=== PATIENT | male | born 1945 | race Caucasian/White ===

== ENCOUNTER 2017-05-24 11:48 | Outpatient (CLI) | payer MEDICARE, OTHER ==
[2017-05-24 13:34] LABS: Hematocrit 48.3 % (42.0-52.0); Mean Platelet Volume 6.8 fL (7.4-10.4); Red Blood Cell (RBC) Count 4.95 mill/uL (4.70-6.10); White Blood Cell (WBC) Count 6.6 thou/uL (4.8-10.8)
[2017-05-24 13:36] LABS: PTT 24.4 SEC (22.9-36.1)
[2017-05-24 13:40] LABS: Prothrombin Time 12.6 SEC (12.0-14.7)
[2017-05-24 13:44] LABS: Anion Gap 12 mmol/L (10-20); BUN (Urea Nitrogen) 28 mg/dL (8.4-25.7); Calc. Creatinine Clearance 0 mL/min (70-130); Calcium 9.8 mg/dL (7.8-10.44); Carbon Dioxide 26 mmol/L (23-31); Chloride 104 mmol/L (98-107); Estimated GFR-MDRD 71
== END 2017-05-24 11:49 | disposition home or self-care (01) ==
LOC: LABBT 11:48
PROVIDERS: ATTEND Podiatrist
DX: Z01.812 Encounter for preprocedural laboratory examination (principal); Z51.81 Encounter for therapeutic drug level monitoring; M21.611 Bunion of right foot; M1A.9XX1 Chronic gout, unspecified, with tophus (tophi); Z79.01 Long term (current) use of anticoagulants
CPT/HCPCS: 80048; 85027; 85610; 85730; 93005; 93010

== ENCOUNTER 2017-06-01 11:11 | Day surgery (SDC) | payer MEDICARE, OTHER ==
[2017-05-24 12:40] VITALS: BMI 22.4
[2017-06-01] MEDS ORDERED: CEFAZOLIN/Water 2 GM/20 ML SYRINGE ONE (12:35)
[2017-06-01] MEDS ORDERED: Fentanyl 100 MCG/2 ML VIAL ONE (13:10)
[2017-06-01] MEDS ORDERED: Lidocaine 2% w/Epinephrine 1:200K 20 ML VIAL ONE (13:42)
[2017-06-01] MEDS ORDERED: Lidocaine 2% PF 5 ML VIAL ONE (13:42)
[2017-06-01] MEDS ORDERED: Lidocaine 1% (PF) 30 ML VIAL ONE (13:42)
[2017-06-01] MEDS ORDERED: Bupivacaine PF 0.5% 30 ML VIAL ONE (13:42)
[2017-06-01] MEDS ORDERED: Bacitracin Zinc Ointment 30 gm TUBE ONE (14:11)
[2017-06-01] MEDS ORDERED: PROPOFOL 200 MG/20 ML VIAL ONE (15:24)
[2017-06-01] MEDS ORDERED: Ketorolac Tromethamine 30 MG/ML VIAL ONE (15:24)
[2017-06-01] MEDS ORDERED: PHENYLEPHRINE-NS 100 MCG/ML 10 ML SYRINGE ONE (15:24)
[2017-06-01] MEDS ORDERED: Lidocaine 1% PF 5 ML VIAL ONE (15:24)
[2017-06-01] MEDS ORDERED: Ondansetron HCl/PF 4 MG/2 ML Vial ONE (15:24)
== END 2017-06-01 16:08 | disposition home or self-care (01) ==
LOC: SDC 11:11
PROVIDERS: ATTEND Podiatrist
PROC: 0SCM0ZZ Extirpation of Matter from Right Metatarsal-Phalangeal Joint, Open Approach (ICD-10-PCS; principal; 2017-06-01)
DX: M1A.0711 Idiopathic chronic gout, right ankle and foot, with tophus (tophi) (principal); I10 Essential (primary) hypertension; Z79.899 Other long term (current) drug therapy; Z90.89 Acquired absence of other organs; Z90.49 Acquired absence of other specified parts of digestive tract; Z98.890 Other specified postprocedural states; Z87.891 Personal history of nicotine dependence
CPT/HCPCS: J1885; J2001; J2405; J2704; J3010; S0020